=== PATIENT | male | born 1960 | race Caucasian/White ===

== ENCOUNTER 2023-09-12 14:42 | Inpatient (IN) | payer MEDICARE, BC ==
[~2023-09-12] VITALS: Ht 177.8 cm; Wt 95.3 kg
[2023-09-12] MEDS: MEROPENEM 1 G in IV NORMAL SALINE 100 ML IV SCH (01:50)
[2023-09-12] MEDS ORDERED: METRONIDAZOLE 500 MG/NS 100 ML PIGGYBACK IV ONE (15:45)
[2023-09-12] MEDS ORDERED: CEFTRIAXONE 1 G in IV DEXTROSE 5% 50 ML IV ONE (15:45)
[2023-09-12] MEDS ORDERED: CEFTRIAXONE /D5W 50ML IVPB **ER PYXIS IV ONE (17:23)
[2023-09-12] MEDS ORDERED: METRONIDAZOLE 500 MG/NS 100ML 100 ML IV ONE (17:23)
[2023-09-12 17:26] LABS: BASOPHILS % (AUTO) 0.2 % (0.0-2.0); EOSINOPHILS # (AUTO) 0.1 K/uL (0.0-0.7); EOSINOPHILS % (AUTO) 0.4 % (0.0-7.0); HEMATOCRIT 44.3 % (36.7-47.1); HEMOGLOBIN 14.8 g/dL (12.5-16.3); LYMPHOCYTES # (AUTO) 0.9 K/uL (0.8-4.8); LYMPHOCYTES % (AUTO) 4.7 % (20.5-51.5); MEAN CORPUSCULAR HEMOGLOBIN 30.7 uug (23.8-33.4); MEAN CORPUSCULAR HGB CONC 34 g/dL (32.5-36.3); MEAN CORPUSCULAR VOLUME 91.8 fL (73.0-96.2); MONOCYTES # (AUTO) 1.1 K/uL (0.1-1.30); NEUTROPHILS # (AUTO) 16.4 K/uL (1.8-8.9); NEUTROPHILS % (AUTO) 88.7 % (38.5-71.5); PLATELET COUNT (AUTO) 277 K/uL (152-348); RED BLOOD CELL COUNT(AUTO) 4.82 MIL/uL (4.06-5.63); RED CELL DISTRIBUTION WIDTH 12.4 % (12.1-16.2); WHITE BLOOD COUNT (AUTO) 18.6 K/uL (3.6-10.2)
[2023-09-12 17:40] LABS: DIFFERENTIAL COMMENT 1
[2023-09-12 17:42] LABS: CALCIUM 9.3 mg/dL (8.5-10.1); CARBON DIOXIDE 27 mmol/L (21-32); CHLORIDE 97 mmol/L (98-107); CREATININE 2.1 mg/dL (0.6-1.3); GLUCOSE 142 mg/dL (74-106); POTASSIUM 3.7 mmol/L (3.5-5.1); SODIUM SERUM 135 mmol/L (136-145); UREA NITROGEN, BLOOD 27 mg/dL (7-18)
[2023-09-12] MEDS ORDERED: ATOR20TA PO (17:42)
[2023-09-12] MEDS ORDERED: SULF1TAB48 PO (17:42)
[2023-09-12] MEDS ORDERED: METF-440 PO (17:42)
[2023-09-12] MEDS ORDERED: SPIR1TAB PO (17:42)
[2023-09-12] MEDS ORDERED: CEFA500C PO (17:42)
[2023-09-12] MEDS ORDERED: FLUT1BLS12 IH (17:42)
[2023-09-12] MEDS ORDERED: D-ME473S47 PO (17:42)
[2023-09-12] MEDS ORDERED: ALBU2.5V38 IH (17:42)
[2023-09-12] MEDS ORDERED: IRBE150T28 PO (17:42)
[2023-09-12 17:54] LABS: LACTIC ACID 2.8 mmol/L (0.4-2.0)
[2023-09-12 17:56] LABS: ALANINE AMINOTRANSFERASE 69 U/L (16-63); ALBUMIN 3.3 g/dL (3.4-5.0); ALKALINE PHOSPHATASE 74 U/L (50-136); ASPARTATE AMINOTRANSFERASE 32 U/L (15-37); BILIRUBIN,DIRECT 0.3 mg/dL (0.0-0.2); BILIRUBIN,TOTAL 0.6 mg/dL (0.2-1.0); LIPASE 64 U/L (16-77); TOTAL PROTEIN, SERUM 8.2 g/dL (6.4-8.2)
[2023-09-12] MEDS ORDERED: CLINDAMYCIN PHOSPHATE IV 600 MG in IV DEXTROSE 5% 100 ML IV ONE (18:45)
[2023-09-12] MEDS ORDERED: PIPERACILLIN SODIUM/TAZOBACTAM 4.5 G in IV DEXTROSE 5% 50 ML IV SCH (18:45)
[2023-09-12] MEDS ORDERED: ONDANSETRON 4 MG/2 ML VIAL IV ONE (19:00)
[2023-09-12] MEDS ORDERED: CLINDAMYCIN 600 MG PIGGYBACK**ER OMNI IV ONE (19:20)
[2023-09-12] MEDS ORDERED: PIPERACILLIN/TAZO 4.5 GM VIAL IV ONE (19:20)
[2023-09-12] MEDS ORDERED: ONDANSETRON 4 MG/2 ML VIAL ONE ×2 (19:20→23:32)
[2023-09-12 20:49] LABS: *BILIRUBIN,URIN NEGATIVE (NEGATIVE); *CLARITY,URINE CLEAR (CLEAR); *COLOR,URINE YELLOW (YELLOW); *KETONES,URINE NEGATIVE (NEGATIVE); *PROTEIN,URINE 1+ (NEGATIVE); LEUKOCYTE ESTERASE ,URINE NEGATIVE (NEGATIVE); NITRITE, URINE NEGATIVE (NEGATIVE); UGLUCOSE NEGATIVE (NEGATIVE)
[2023-09-12 20:50] LABS: *BLOOD, URINE TRACE (NEGATIVE); BACTERIA,URINE NONE SEEN /HPF (NONE SEEN); RBC,URINE 0-3 /HPF (0-3); SQUAMOUS EPITHELIAL CELL,UR NONE SEEN /HPF (NONE SEEN); WBC,URINE NONE SEEN /HPF (0-3)
[2023-09-12] MEDS ORDERED: IV D5/ 0.9% NACL 1,000 ML IV PRN (21:45)
[2023-09-12] MEDS ORDERED: ACETAMINOPHEN 650 MG SUPP.RECT RC PRN (21:45)
[2023-09-12] MEDS ORDERED: ALBUTEROL SULFATE 2.5 MG/ 0.5 ML NEBU NEB PRN (21:45)
[2023-09-12] MEDS ORDERED: ONDANSETRON 4 MG/2 ML VIAL IV PRN (21:45)
[2023-09-12] MEDS ORDERED: ALBUTEROL SULFATE 8 GM HFA.AER.AD ONE (22:18)
[2023-09-12] MEDS ORDERED: FENTANYL CITRATE 100 MCG/2 ML AMPUL ONE (22:21)
[2023-09-12] MEDS ORDERED: KETAMINE HCL 500 MG/10 ML INJ ONE (22:21)
[2023-09-12] MEDS ORDERED: FAMOTIDINE. 20 MG/2 ML VIAL IV ONE (22:22)
[2023-09-12] MEDS ORDERED: ALBUTEROL SULFATE 2.5 MG/3 ML NEBU ONE ×2 (22:25→23:51)
[2023-09-12 22:28] VITALS: O2SAT 93
[2023-09-12] MEDS ORDERED: PANTOPRAZOLE SODIUM 40 MG VIAL ONE (22:34)
[2023-09-12] MEDS ORDERED: methylPREDNISolone SOD SUCC 125 MG/2 ML VIAL ONE (22:36)
[2023-09-12 22:43] VITALS: O2SAT 93; O2SAT 99
[2023-09-12] MEDS ORDERED: SEVOFLURANE 250 ML BOTTLE ONE (22:51)
[2023-09-12] MEDS ORDERED: INSULIN REGULAR, HUMAN 300 UNIT/3 ML VIAL ONE (23:02)
[2023-09-12] MEDS ORDERED: GLYCOPYRROLATE 0.2 MG/ML VIAL ONE (23:32)
[2023-09-12] MEDS ORDERED: PHENYLEPHRINE 10 MG/1 ML VIAL ONE (23:32)
[2023-09-12] MEDS ORDERED: SUCCINYLCHOLINE CHLORIDE 200 MG/10 ML VIAL ONE (23:32)
[2023-09-12] MEDS ORDERED: PROPOFOL 200 MG/20 ML BOTTLE ONE (23:32)
[2023-09-12] MEDS ORDERED: LIDOCAINE-MPF 2% 5 ML VIAL ONE (23:32)
[2023-09-12] MEDS ORDERED: IPRATROPIUM BROMIDE 0.5 MG/2.5 ML NEBU ONE (23:51)
[2023-09-13] VITALS (7 sets, daily range): BP systolic 102–110; BP diastolic 58–74; TEMP 98–98.6; O2SAT 94–99
[2023-09-13] MEDS ORDERED: SODIUM HYPOCHLORITE 0.125% (QUARTER STRENGTH) 473 ML BOTTLE TP ONE
[2023-09-13] MEDS ORDERED: VANCOMYCIN IV 200 ML ONE (01:37)
[2023-09-13] MEDS ORDERED: CLINDAMYCIN 600 MG PIGGYBACK**ER OMNI IV ONE (01:38)
[2023-09-13] MEDS ORDERED: PIPERACILLIN SODIUM/TAZO 3.375 GM VIAL ONE (01:38)
[2023-09-13] MEDS ORDERED: MEROPENEM 1GM/NS 100ML IVPB **ER PYXIS ONLY IV ONE ×2 (01:38→06:13)
[2023-09-13] MEDS ORDERED: ALBUTEROL SULFATE 2.5 MG/ 0.5 ML NEBU NEB PRN (02:11)
[2023-09-13] MEDS ORDERED: VANCOMYCIN IV 1,000 MG in IV DEXTROSE 5% 250 ML IV ONE (02:25)
[2023-09-13] MEDS ORDERED: PIPERACILLIN SODIUM/TAZOBACTAM 3.375 G in IV DEXTROSE 5% 50 ML IV ONE (02:30)
[2023-09-13] MEDS: CLINDAMYCIN PHOSPHATE IV 600 MG in IV DEXTROSE 5% 100 ML IV SCH ×3 (06:05→21:47)
[2023-09-13] MEDS: MEROPENEM 1 G in IV NORMAL SALINE 100 ML IV SCH ×2 (06:14→17:04)
[2023-09-13 06:45] LABS: BASOPHILS % (AUTO) 0.1 % (0.0-2.0); EOSINOPHILS % (AUTO) 0.1 % (0.0-7.0); HEMATOCRIT 38.5 % (36.7-47.1); HEMOGLOBIN 12.8 g/dL (12.5-16.3); LYMPHOCYTES # (AUTO) 0.6 K/uL (0.8-4.8); LYMPHOCYTES % (AUTO) 3.6 % (20.5-51.5); MEAN CORPUSCULAR HEMOGLOBIN 30.5 uug (23.8-33.4); MEAN CORPUSCULAR HGB CONC 33 g/dL (32.5-36.3); MEAN CORPUSCULAR VOLUME 91.9 fL (73.0-96.2); MONOCYTES # (AUTO) 0.4 K/uL (0.1-1.30); MONOCYTES % (AUTO) 2.1 % (0.0-11.0); NEUTROPHILS # (AUTO) 16.4 K/uL (1.8-8.9); NEUTROPHILS % (AUTO) 94.1 % (38.5-71.5); PLATELET COUNT (AUTO) 251 K/uL (152-348); RED BLOOD CELL COUNT(AUTO) 4.19 MIL/uL (4.06-5.63); RED CELL DISTRIBUTION WIDTH 12.2 % (12.1-16.2); WHITE BLOOD COUNT (AUTO) 17.4 K/uL (3.6-10.2)
[2023-09-13 07:10] LABS: DIFFERENTIAL COMMENT 1
[2023-09-13 07:16] LABS: ALBUMIN 2.5 g/dL (3.4-5.0); BILIRUBIN,TOTAL 0.5 mg/dL (0.2-1.0); CALCIUM 7.9 mg/dL (8.5-10.1); MAGNESIUM 2.1 mg/dL (1.8-2.4); PHOSPHOROUS 4.4 mg/dL (2.5-4.9); TOTAL PROTEIN, SERUM 6.8 g/dL (6.4-8.2)
[2023-09-13] MEDS: PANTOPRAZOLE SODIUM 40 MG VIAL IV SCH (09:00)
[2023-09-13] MEDS ORDERED: PANTOPRAZOLE SODIUM 40 MG VIAL ONE (09:41)
[2023-09-13] MEDS ORDERED: PIPERACILLIN SODIUM/TAZOBACTAM 3.375 G in IV DEXTROSE 5% 100 ML IV SCH (10:00)
[2023-09-13] MEDS ORDERED: IPRATROPIUM BROMIDE 0.5 MG/2.5 ML NEBU NEB PRN (12:00)
[2023-09-13] MEDS ORDERED: DEXTROSE 50% 50 ML DISP.SYRIN IV PRN (13:45)
[2023-09-13] MEDS ORDERED: ALBUTEROL SULFATE 2.5 MG/3 ML NEBU IH PRN (13:45)
[2023-09-13] MEDS ORDERED: MEROPENEM 1 G in IV NORMAL SALINE 100 ML IV SCH (14:00)
[2023-09-13] MEDS ORDERED: PIPERACILLIN SODIUM/TAZOBACTAM 3.375 G in IV DEXTROSE 5% 50 ML IV SCH ×3 (14:00)
[2023-09-13] MEDS: BLOOD SUGAR DIAGNOSTIC 1 EACH STRIP VI SCH ×2 (16:21→21:47)
[2023-09-13] MEDS: INSULIN REGULAR, HUMAN 300 UNIT/3 ML VIAL SQ PRN (16:28)
[2023-09-13] MEDS ORDERED: FLUTICASONE/SALMETEROL 250/50 INHALER IH SCH (17:00)
[2023-09-13] MEDS: SODIUM HYPOCHLORITE 0.5% TOP SCH (17:04)
[2023-09-13] MEDS: ATORVASTATIN 20 MG TABLET PO SCH (20:33)
[2023-09-13] MEDS: IPRATROPIUM BROMIDE 0.5 MG/2.5 ML NEBU NEB SCH (23:06)
[2023-09-13] MEDS: LEVALBUTEROL HCL 1.25 MG/0.5 ML NEB NEB SCH (23:06)
[2023-09-13] MEDS: MORPHINE SULFATE 4 MG/1 ML DISP.SYRIN IV PRN (23:43)
[2023-09-14] VITALS (10 sets, daily range): BP systolic 94–131; BP diastolic 59–86; TEMP 97–98.7; O2SAT 93–100
[2023-09-14] MEDS: CLINDAMYCIN PHOSPHATE IV 600 MG in IV DEXTROSE 5% 100 ML IV SCH ×3 (05:40→21:25)
[2023-09-14] MEDS: MEROPENEM 1 G in IV NORMAL SALINE 100 ML IV SCH ×2 (05:40→17:11)
[2023-09-14] MEDS: BLOOD SUGAR DIAGNOSTIC 1 EACH STRIP VI SCH ×4 (06:57→21:23)
[2023-09-14] MEDS: LEVALBUTEROL HCL 1.25 MG/0.5 ML NEB NEB SCH ×3 (07:30→23:20)
[2023-09-14] MEDS: IPRATROPIUM BROMIDE 0.5 MG/2.5 ML NEBU NEB SCH ×3 (07:30→23:20)
[2023-09-14 08:20] LABS: CALCIUM 8.6 mg/dL (8.5-10.1); CREATININE 1.1 mg/dL (0.6-1.3); POTASSIUM 4.5 mmol/L (3.5-5.1)
[2023-09-14] MEDS ORDERED: FLUTICASONE/VILANTEROL 1 EACH BLST.W.DEV IH SCH (09:00)
[2023-09-14] MEDS ORDERED: Medication Not On Formulary EA (Irbesartan (Avapro) 150 MG) PO SCH (09:00)
[2023-09-14] MEDS: PANTOPRAZOLE SODIUM 40 MG VIAL IV SCH (09:14)
[2023-09-14] MEDS: LOSARTAN POTASSIUM 50 MG TABLET PO SCH (09:14)
[2023-09-14] MEDS: SODIUM HYPOCHLORITE 0.5% TOP SCH ×2 (09:15→21:25)
[2023-09-14] MEDS ORDERED: VANCOMYCIN IV 1,250 MG in IV DEXTROSE 5% 250 ML IV SCH (09:45)
[2023-09-14] MEDS: VANCOMYCIN IV 1,250 MG in IV DEXTROSE 5% 250 ML IV SCH ×2 (10:43→21:27)
[2023-09-14] MEDS: INSULIN REGULAR, HUMAN 300 UNIT/3 ML VIAL SQ PRN ×2 (10:55→17:01)
[2023-09-14 13:06] LABS: PTH, INTACT 34 pg/mL (15-65)
[2023-09-14 15:30] LABS: BASOPHILS # (AUTO) 0.1 K/UL (0.0-0.2); BASOPHILS % (AUTO) 0.6 % (0.0-2.0); EOSINOPHILS # (AUTO) 0.2 K/uL (0.0-0.7); EOSINOPHILS % (AUTO) 1.3 % (0.0-7.0); HEMATOCRIT 37.8 % (36.7-47.1); HEMOGLOBIN 12.6 g/dL (12.5-16.3); LYMPHOCYTES # (AUTO) 3.1 K/uL (0.8-4.8); LYMPHOCYTES % (AUTO) 21.4 % (20.5-51.5); MEAN CORPUSCULAR HEMOGLOBIN 30.7 uug (23.8-33.4); MEAN CORPUSCULAR HGB CONC 33 g/dL (32.5-36.3); MEAN CORPUSCULAR VOLUME 92.3 fL (73.0-96.2); MONOCYTES # (AUTO) 1.2 K/uL (0.1-1.30); MONOCYTES % (AUTO) 8.3 % (0.0-11.0); NEUTROPHILS % (AUTO) 68.4 % (38.5-71.5); PLATELET COUNT (AUTO) 287 K/uL (152-348); RED CELL DISTRIBUTION WIDTH 12.5 % (12.1-16.2); WHITE BLOOD COUNT (AUTO) 14.7 K/uL (3.6-10.2)
[2023-09-14 15:41] LABS: DIFFERENTIAL COMMENT 1
[2023-09-14] MEDS ORDERED: IV NORMAL SALINE 250 ML IV PRN (19:00)
[2023-09-14] MEDS: ATORVASTATIN 20 MG TABLET PO SCH (21:22)
[2023-09-14] MEDS: HYDROCODONE/APAP 5-325MG TABLET PO PRN (21:23)
[2023-09-15 03:30] VITALS: BP 102/71; TEMP 98; O2SAT 94
[2023-09-15 05:23] VITALS: BP 101/62; TEMP 97.3; O2SAT 95
[2023-09-15] MEDS: MEROPENEM 1 G in IV NORMAL SALINE 100 ML IV SCH ×2 (06:54→19:00)
[2023-09-15] MEDS: CLINDAMYCIN PHOSPHATE IV 600 MG in IV DEXTROSE 5% 100 ML IV SCH ×2 (06:54→14:46)
[2023-09-15] MEDS: BLOOD SUGAR DIAGNOSTIC 1 EACH STRIP VI SCH ×4 (07:02→21:36)
[2023-09-15] MEDS: LEVALBUTEROL HCL 1.25 MG/0.5 ML NEB NEB SCH ×2 (07:35→08:12)
[2023-09-15] MEDS: IPRATROPIUM BROMIDE 0.5 MG/2.5 ML NEBU NEB SCH ×4 (07:35→23:30)
[2023-09-15 08:07] LABS: BASOPHILS # (AUTO) 0.1 K/UL (0.0-0.2); BASOPHILS % (AUTO) 1.2 % (0.0-2.0); EOSINOPHILS # (AUTO) 0.4 K/uL (0.0-0.7); EOSINOPHILS % (AUTO) 3.6 % (0.0-7.0); HEMATOCRIT 41.8 % (36.7-47.1); HEMOGLOBIN 14.2 g/dL (12.5-16.3); LYMPHOCYTES # (AUTO) 2.9 K/uL (0.8-4.8); MEAN CORPUSCULAR HEMOGLOBIN 31.2 uug (23.8-33.4); MEAN CORPUSCULAR HGB CONC 34 g/dL (32.5-36.3); MEAN CORPUSCULAR VOLUME 91.7 fL (73.0-96.2); MONOCYTES # (AUTO) 1.3 K/uL (0.1-1.30); MONOCYTES % (AUTO) 11.1 % (0.0-11.0); NEUTROPHILS # (AUTO) 6.8 K/uL (1.8-8.9); NEUTROPHILS % (AUTO) 59.1 % (38.5-71.5); PLATELET COUNT (AUTO) 323 K/uL (152-348); RED BLOOD CELL COUNT(AUTO) 4.56 MIL/uL (4.06-5.63); RED CELL DISTRIBUTION WIDTH 12.3 % (12.1-16.2); WHITE BLOOD COUNT (AUTO) 11.4 K/uL (3.6-10.2)
[2023-09-15 08:26] LABS: CALCIUM 8.9 mg/dL (8.5-10.1); CREATININE 0.9 mg/dL (0.6-1.3); VANCOMYCIN,TROUGH 16.1 ug/mL (10.0-20.0)
[2023-09-15 08:27] LABS: DIFFERENTIAL COMMENT 1
[2023-09-15 08:31] LABS: POTASSIUM 4.3 mmol/L (3.5-5.1)
[2023-09-15] MEDS: SODIUM HYPOCHLORITE 0.5% TOP SCH ×2 (09:00→21:18)
[2023-09-15] MEDS: MORPHINE SULFATE 4 MG/1 ML DISP.SYRIN IV PRN ×2 (09:20→11:48)
[2023-09-15] MEDS: PANTOPRAZOLE SODIUM 40 MG VIAL IV SCH (09:20)
[2023-09-15] MEDS: LOSARTAN POTASSIUM 50 MG TABLET PO SCH (09:21)
[2023-09-15] MEDS: VANCOMYCIN IV 1,250 MG in IV DEXTROSE 5% 250 ML IV SCH (12:11)
[2023-09-15 17:52] VITALS: BP 128/77; TEMP 97.7
[2023-09-15 20:00] VITALS: BP 111/68; TEMP 98; O2SAT 98
[2023-09-15] MEDS: ATORVASTATIN 20 MG TABLET PO SCH (21:18)
[2023-09-15] MEDS: INSULIN REGULAR, HUMAN 300 UNIT/3 ML VIAL SQ PRN (21:43)
[2023-09-15 23:00] VITALS: O2SAT 99
[2023-09-16] MEDS: CLINDAMYCIN PHOSPHATE IV 600 MG in IV DEXTROSE 5% 100 ML IV SCH ×2 (01:39→06:25)
[2023-09-16] MEDS: VANCOMYCIN IV 1,250 MG in IV DEXTROSE 5% 250 ML IV SCH ×3 (03:06→23:21)
[2023-09-16 04:00] VITALS: BP 129/71; TEMP 98.2; O2SAT 100
[2023-09-16] MEDS: PANTOPRAZOLE SODIUM 40 MG TABLET.DR PO SCH (07:00)
[2023-09-16] MEDS: BLOOD SUGAR DIAGNOSTIC 1 EACH STRIP VI SCH ×4 (07:05→21:26)
[2023-09-16 07:15] LABS: BASOPHILS # (AUTO) 0.1 K/UL (0.0-0.2); BASOPHILS % (AUTO) 0.5 % (0.0-2.0); EOSINOPHILS # (AUTO) 0.6 K/uL (0.0-0.7); EOSINOPHILS % (AUTO) 4.9 % (0.0-7.0); HEMATOCRIT 40.5 % (36.7-47.1); HEMOGLOBIN 13.7 g/dL (12.5-16.3); LYMPHOCYTES # (AUTO) 2.8 K/uL (0.8-4.8); LYMPHOCYTES % (AUTO) 24.2 % (20.5-51.5); MEAN CORPUSCULAR HEMOGLOBIN 31.1 uug (23.8-33.4); MEAN CORPUSCULAR HGB CONC 34 g/dL (32.5-36.3); MEAN CORPUSCULAR VOLUME 91.9 fL (73.0-96.2); MONOCYTES # (AUTO) 1.2 K/uL (0.1-1.30); NEUTROPHILS # (AUTO) 7.1 K/uL (1.8-8.9); NEUTROPHILS % (AUTO) 60.4 % (38.5-71.5); PLATELET COUNT (AUTO) 330 K/uL (152-348); RED BLOOD CELL COUNT(AUTO) 4.41 MIL/uL (4.06-5.63); RED CELL DISTRIBUTION WIDTH 12.4 % (12.1-16.2); WHITE BLOOD COUNT (AUTO) 11.7 K/uL (3.6-10.2)
[2023-09-16 07:23] LABS: POTASSIUM 4.6 mmol/L (3.5-5.1)
[2023-09-16 07:26] LABS: DIFFERENTIAL COMMENT 1
[2023-09-16] MEDS: IPRATROPIUM BROMIDE 0.5 MG/2.5 ML NEBU NEB SCH ×4 (07:35→23:19)
[2023-09-16 07:42] VITALS: O2SAT 95
[2023-09-16 08:00] VITALS: BP 128/83; TEMP 97.7; O2SAT 94
[2023-09-16] MEDS: INSULIN REGULAR, HUMAN 300 UNIT/3 ML VIAL SQ PRN ×2 (08:19→11:47)
[2023-09-16] MEDS: LOSARTAN POTASSIUM 50 MG TABLET PO SCH (08:50)
[2023-09-16] MEDS ORDERED: CLINDAMYCIN PHOSPHATE IV 600 MG in IV DEXTROSE 5% 50 ML IV SCH (09:06)
[2023-09-16 10:04] VITALS: BP 148/60; TEMP 98.6; O2SAT 98
[2023-09-16] MEDS: SODIUM HYPOCHLORITE 0.5% TOP SCH ×2 (11:03→22:44)
[2023-09-16] MEDS: MEROPENEM 1 G in IV NORMAL SALINE 100 ML IV SCH ×3 (14:17→23:21)
[2023-09-16] MEDS: CLINDAMYCIN PHOSPHATE IV 600 MG in IV DEXTROSE 5% 50 ML IV SCH ×2 (14:26→22:46)
[2023-09-16] MEDS: ATORVASTATIN 20 MG TABLET PO SCH (20:33)
[2023-09-16 20:45] VITALS: BP 124/85; TEMP 97.8; O2SAT 97
[2023-09-17] VITALS (8 sets, daily range): BP systolic 119–124; BP diastolic 70–79; TEMP 97.6–98.5; O2SAT 95–97
[2023-09-17] MEDS: CLINDAMYCIN PHOSPHATE IV 600 MG in IV DEXTROSE 5% 50 ML IV SCH ×3 (05:08→22:26)
[2023-09-17] MEDS: MEROPENEM 1 G in IV NORMAL SALINE 100 ML IV SCH ×3 (05:43→22:26)
[2023-09-17] MEDS: PANTOPRAZOLE SODIUM 40 MG TABLET.DR PO SCH (06:36)
[2023-09-17] MEDS: BLOOD SUGAR DIAGNOSTIC 1 EACH STRIP VI SCH ×4 (06:40→22:10)
[2023-09-17] MEDS: IPRATROPIUM BROMIDE 0.5 MG/2.5 ML NEBU NEB SCH ×4 (07:35→23:33)
[2023-09-17 08:54] LABS: BASOPHILS # (AUTO) 0.1 K/UL (0.0-0.2); BASOPHILS % (AUTO) 0.8 % (0.0-2.0); EOSINOPHILS # (AUTO) 0.5 K/uL (0.0-0.7); EOSINOPHILS % (AUTO) 3.9 % (0.0-7.0); HEMATOCRIT 40.2 % (36.7-47.1); HEMOGLOBIN 13.4 g/dL (12.5-16.3); LYMPHOCYTES # (AUTO) 2.4 K/uL (0.8-4.8); LYMPHOCYTES % (AUTO) 19.6 % (20.5-51.5); MEAN CORPUSCULAR HEMOGLOBIN 30.5 uug (23.8-33.4); MEAN CORPUSCULAR HGB CONC 33 g/dL (32.5-36.3); MEAN CORPUSCULAR VOLUME 91.5 fL (73.0-96.2); NEUTROPHILS # (AUTO) 8.2 K/uL (1.8-8.9); NEUTROPHILS % (AUTO) 67.7 % (38.5-71.5); PLATELET COUNT (AUTO) 345 K/uL (152-348); RED BLOOD CELL COUNT(AUTO) 4.39 MIL/uL (4.06-5.63); RED CELL DISTRIBUTION WIDTH 12.1 % (12.1-16.2); WHITE BLOOD COUNT (AUTO) 12.2 K/uL (3.6-10.2)
[2023-09-17 09:05] LABS: CALCIUM 8.3 mg/dL (8.5-10.1); CREATININE 1.1 mg/dL (0.6-1.3)
[2023-09-17] MEDS: LOSARTAN POTASSIUM 50 MG TABLET PO SCH (09:12)
[2023-09-17] MEDS: SODIUM HYPOCHLORITE 0.5% TOP SCH ×2 (09:12→22:11)
[2023-09-17 09:29] LABS: DIFFERENTIAL COMMENT 1
[2023-09-17] MEDS ORDERED: VANCOMYCIN IV 1,250 MG in IV DEXTROSE 5% 250 ML IV SCH (11:00)
[2023-09-17] MEDS: PROTEIN SUPPLEMENT (PROSTAT) 30 ML LIQUID PO SCH (11:10)
[2023-09-17 12:11] LABS: A/G RATIO 0.7 (0.7-1.7); ALBUMIN 2.6 g/dL (2.9-4.4); ALPHA-1-GLOBULIN 0.5 g/dL (0.0-0.4); ALPHA-2-GLOBULIN 1.2 g/dL (0.4-1.0); GAMMA GLOBULIN 0.9 g/dL (0.4-1.8); GLOBULIN, TOTAL 3.5 g/dL (2.2-3.9); M-SPIKE Not Observed g/dL (Not Observed)
[2023-09-17] MEDS: ATORVASTATIN 20 MG TABLET PO SCH (21:52)
[2023-09-18 00:09] VITALS: O2SAT 95
[2023-09-18] MEDS: MEROPENEM 1 G in IV NORMAL SALINE 100 ML IV SCH (05:03)
[2023-09-18 05:19] VITALS: BP 124/75; TEMP 98.5; O2SAT 92
[2023-09-18] MEDS: PANTOPRAZOLE SODIUM 40 MG TABLET.DR PO SCH (06:02)
[2023-09-18] MEDS: BLOOD SUGAR DIAGNOSTIC 1 EACH STRIP VI SCH ×3 (06:21→16:46)
[2023-09-18] MEDS: IPRATROPIUM BROMIDE 0.5 MG/2.5 ML NEBU NEB SCH ×2 (07:35→15:30)
[2023-09-18 08:00] VITALS: BP 115/79; TEMP 97.5; O2SAT 96
[2023-09-18 08:52] VITALS: BP 115/79
[2023-09-18] MEDS: LOSARTAN POTASSIUM 50 MG TABLET PO SCH (08:52)
[2023-09-18] MEDS ORDERED: AMOXICILLIN-CLAVUL 875-125MG TABLET PO SCH (09:00)
[2023-09-18] MEDS: PROTEIN SUPPLEMENT (PROSTAT) 30 ML LIQUID PO SCH (09:03)
[2023-09-18] MEDS: SODIUM HYPOCHLORITE 0.5% TOP SCH (09:03)
[2023-09-18] MEDS ORDERED: HYDR-3972 PO (09:05)
[2023-09-18] MEDS ORDERED: AMOX-430 PO (09:05)
[2023-09-18 10:31] LABS: BASOPHILS # (AUTO) 0.1 K/UL (0.0-0.2); BASOPHILS % (AUTO) 0.6 % (0.0-2.0); EOSINOPHILS # (AUTO) 0.4 K/uL (0.0-0.7); EOSINOPHILS % (AUTO) 2.9 % (0.0-7.0); HEMATOCRIT 40.8 % (36.7-47.1); HEMOGLOBIN 13.8 g/dL (12.5-16.3); LYMPHOCYTES # (AUTO) 2.6 K/uL (0.8-4.8); LYMPHOCYTES % (AUTO) 18.3 % (20.5-51.5); MEAN CORPUSCULAR HEMOGLOBIN 30.7 uug (23.8-33.4); MEAN CORPUSCULAR HGB CONC 34 g/dL (32.5-36.3); MONOCYTES # (AUTO) 0.9 K/uL (0.1-1.30); MONOCYTES % (AUTO) 6.1 % (0.0-11.0); NEUTROPHILS # (AUTO) 10.2 K/uL (1.8-8.9); NEUTROPHILS % (AUTO) 72.1 % (38.5-71.5); PLATELET COUNT (AUTO) 345 K/uL (152-348); RED BLOOD CELL COUNT(AUTO) 4.48 MIL/uL (4.06-5.63); RED CELL DISTRIBUTION WIDTH 12.4 % (12.1-16.2); WHITE BLOOD COUNT (AUTO) 14.2 K/uL (3.6-10.2)
[2023-09-18 10:44] LABS: CALCIUM 8.7 mg/dL (8.5-10.1); DIFFERENTIAL COMMENT 1; POTASSIUM 4.2 mmol/L (3.5-5.1)
[2023-09-18 11:57] VITALS: O2SAT 96
[2023-09-18] MEDS: INSULIN REGULAR, HUMAN 300 UNIT/3 ML VIAL SQ PRN (11:57)
[2023-09-18 12:12] VITALS: O2SAT 99
[2023-09-18] MEDS: HYDROCODONE/APAP 5-325MG TABLET PO PRN (16:17)
== END 2023-09-18 17:23 | disposition home health service (06) | DRG 717 ==
LOC: EDBD 14:42 → ER 14:42 → TRANSITION 21:45 → CCU 09-13 11:06 → MEDSURG3 09-15 02:52
PROVIDERS: ADMIT Internal Medicine; ATTEND Nurse Practitioner Acute Care
PROC: 0JBC0ZZ Excision of Pelvic Region Subcutaneous Tissue and Fascia, Open Approach (ICD-10-PCS; principal; 2023-09-12)
PROC: 0JBB0ZZ Excision of Perineum Subcutaneous Tissue and Fascia, Open Approach (ICD-10-PCS; 2023-09-12)
DX: N49.3 Fournier gangrene (principal); J96.01 Acute respiratory failure with hypoxia; N17.0 Acute kidney failure with tubular necrosis; E44.1 Mild protein-calorie malnutrition; E87.20 Acidosis, unspecified; L02.215 Cutaneous abscess of perineum; L02.214 Cutaneous abscess of groin; J20.5 Acute bronchitis due to respiratory syncytial virus; N49.2 Inflammatory disorders of scrotum; E88.09 Other disorders of plasma-protein metabolism, not elsewhere classified; G47.30 Sleep apnea, unspecified; J45.909 Unspecified asthma, uncomplicated; K57.30 Diverticulosis of large intestine without perforation or abscess without bleeding; E78.5 Hyperlipidemia, unspecified; F10.90 Alcohol use, unspecified, uncomplicated; I12.9 Hypertensive chronic kidney disease with stage 1 through stage 4 chronic kidney disease, or unspecified chronic kidney disease; N18.9 Chronic kidney disease, unspecified; E11.22 Type 2 diabetes mellitus with diabetic chronic kidney disease; N40.0 Benign prostatic hyperplasia without lower urinary tract symptoms; E66.9 Obesity, unspecified; Z68.30 Body mass index [BMI] 30.0-30.9, adult; E11.51 Type 2 diabetes mellitus with diabetic peripheral angiopathy without gangrene; Z79.899 Other long term (current) drug therapy; Z79.84 Long term (current) use of oral hypoglycemic drugs
CPT/HCPCS: 36415; 71045; 76870; 83605; 83690; 83735; 83970; 84100; 84155; 84165; 84484; 85025; 85730; 87040; 88312-TC; 93005; 94640; 94664; 94760; A4606; A4649; A4663; C9113; G0378; J0330; J0696; J1815; J2185; J2270; J2405; J2543; J2930; J3010; J3370; J3490; J3535; J3590; J7040; J7042; J7050